=== PATIENT | male | born 1945 | race Caucasian/White ===

== ENCOUNTER → 2018-03-03 | Day surgery (SDC) | payer MEDICARE ==
[2018-03-02 13:03] VITALS: BMI 23.8
[~2018-03-03] MED LIST: PROPOFOL 20 ML ONE; PROPOFOL 200 MG/20 ML VIAL ONE
--- NOTE | 2018-03-03 19:48 | ECHO ---
This is a 72-year-old gentleman with aortic regurgitation. The patient taken to the PACU. The patien t was sedated by anesthesiology. A transesophageal probe was placed distally in the esophagus and sto mach. Echocardiographic images were obtained and the transesophageal probe was removed. FINDINGS 1. Normal left ventricular systolic function. 2. Normal left atrial size. 3. Normal aortic and mitral valves. 4. Mild to moderate aortic regurgitation. 5. Mild to moderate mitral regurgitation. 6. Mild tricuspid regurgitation. 7. Atherosclerotic debris in the descending aorta. IMPRESSION: Mild to moderate aortic regurgitation. CC: Caitlin Clemente M.D.
== END ==
LOC: CCL 06:49
PROVIDERS: ATTEND Internal Medicine Cardiovascular Disease
DX: I35.1 Nonrheumatic aortic (valve) insufficiency (principal); I34.0 Nonrheumatic mitral (valve) insufficiency; I36.1 Nonrheumatic tricuspid (valve) insufficiency; E78.2 Mixed hyperlipidemia; I10 Essential (primary) hypertension; I25.10 Atherosclerotic heart disease of native coronary artery without angina pectoris; F17.290 Nicotine dependence, other tobacco product, uncomplicated; Z79.82 Long term (current) use of aspirin; Z79.899 Other long term (current) drug therapy
CPT/HCPCS: 93312; J2704

== ENCOUNTER 2018-03-06 05:57 | Inpatient (IN) | payer MEDICARE ==
[2018-03-06] MEDS ORDERED: Albumin 5% 500 ML ONE (06:29)
[2018-03-06] MEDS ORDERED: Vecuronium 10 MG VIAL ONE ×3 (06:32→13:58)
[2018-03-06] MEDS ORDERED: Fentanyl 100 MCG/2 ML VIAL ONE (06:32)
[2018-03-06] MEDS ORDERED: Dexmedetomidine 200 MCG/2 ML VIAL ONE (06:32)
[2018-03-06] MEDS ORDERED: Midazolam HCl 5 mg/5 ml Vial ONE (06:33)
[2018-03-06] MEDS ORDERED: CEFAZOLIN/Water 2 GM/20 ML SYRINGE ONE (06:38)
[2018-03-06] MEDS ORDERED: Heparin 10,000 UNITS/1 ML VIAL 30,000 UNITS in Sodium Chloride 0.9% 1,000 ML FS SCH (06:45)
[2018-03-06 06:49] LABS: #Basophils 0.1 thou/uL (0.0-0.2); #Eosinphils 0.3 thou/uL (0.0-0.7); #Lymphocytes 1.8 thou/uL (1.20-3.40); #Monocytes 0.6 thou/uL (0.11-0.59); %Basophils 0.7 % (0.0-1.0); %Eosinophils 3.8 % (0.0-10.0); %Lymphocytes 22.6 % (21.0-51.0); %Monocytes 8.1 % (0.0-10.0); %Neutrophils 64.7 % (42.0-75.0); Hemoglobin 17.4 g/dL (14.0-18.0); Mean Corpuscular HGB CONC 34.8 g/dL (32.0-36.0); Mean Corpuscular Hemoglobin 31.1 pg (27.0-31.0); Mean Corpuscular Volume 89.6 fL (78.0-98.0); Mean Platelet Volume 5.7 fL (7.4-10.4); Platelet Count 227 thou/uL (130-400); RBC Distribution Width 12.9 % (11.5-14.5); Red Blood Cell (RBC) Count 5.58 mill/uL (4.70-6.10); White Blood Cell (WBC) Count 7.7 thou/uL (4.8-10.8)
[2018-03-06] MEDS ORDERED: Sodium Chloride 0.9% 20 ML ONE (07:08)
[2018-03-06 07:11] LABS: Anion Gap 16 mmol/L (10-20); BUN (Urea Nitrogen) 23 mg/dL (8.4-25.7); Calc. Creatinine Clearance 71 mL/min (70-130); Calcium 10.2 mg/dL (7.8-10.44); Carbon Dioxide 26 mmol/L (23-31); Chloride 108 mmol/L (98-107); Estimated GFR-MDRD 75; Glucose 108 mg/dL (80-115); Potassium 5.1 mmol/L (3.5-5.1); Sodium 145 mmol/L (136-145)
[2018-03-06] MEDS ORDERED: Mag-Al 1200 mg/1200 mg/30 ML UDCUP PO PRN (11:45)
[2018-03-06] MEDS ORDERED: Acetaminophen 325 MG TAB PO PRN (11:45)
[2018-03-06] MEDS ORDERED: hydrALAZINE 20 MG/ML VIAL SLOW IVP PRN (11:45)
[2018-03-06] MEDS ORDERED: Potassium Chloride 20 MEQ/100 ML PREMIX BAG IVPB PRN (11:45)
[2018-03-06] MEDS ORDERED: DOPamine 400 MG/D5W 250 ML 250 ML IVPB PRN (11:45)
[2018-03-06] MEDS ORDERED: Guaifenesin DM 100-10/5 ML UDCUP PO PRN (11:45)
[2018-03-06] MEDS ORDERED: Ondansetron HCl/PF 4 MG/2 ML Vial IVP PRN (11:45)
[2018-03-06] MEDS ORDERED: Post-Op Insulin Drip Protocol IVPB ONE (11:45)
[2018-03-06] MEDS ORDERED: Norepinephrine 8 MG/0.9% NS 250 ML IVPB PRN (11:45)
[2018-03-06] MEDS ORDERED: Promethazine HCl 25 MG/ML VIAL IM PRN (11:45)
[2018-03-06] MEDS ORDERED: niCARdipine HCl 25 MG in Sodium Chloride 0.9% 250 ML 240 ML IVPB PRN (11:45)
[2018-03-06] MEDS ORDERED: Fentanyl 100 MCG/2 ML VIAL SLOW IVP PRN ×2 (11:45)
[2018-03-06] MEDS ORDERED: Bisacodyl 5 MG TAB PO PRN (11:45)
[2018-03-06] MEDS ORDERED: Hetastarch 6% 500 ML 500 ML IVPB PRN (11:45)
[2018-03-06] MEDS ORDERED: Bisacodyl 10 MG SUPP PR PRN (11:45)
[2018-03-06] MEDS ORDERED: Nitroglycerin 50 MG/250 ML BOT 250 ML IVPB PRN (11:45)
[2018-03-06 12:05] LABS: CO2 Tension 48.7 mmHg (35.0-45.0); O2 Tension (PaO2) 124.8 mmHg (> 70.0); pH, Arterial 7.29 (7.35-7.45)
[2018-03-06 12:06] LABS: ALV-art Gradient 170.825 (0-20); Base Excess (BEa) -3.9 mEq/L (-2.0 to +3.0); Calcium, Ionized 1.1 mmol/L (1.12-1.30); Hemoglobin (Hb) 15.1 g/dL (14.0-18.0); Puncture Site LINE
[2018-03-06] MEDS ORDERED: Dextrose 50% Abboject 50 ML SYRINGE SLOW IVP PRN (12:06)
[2018-03-06] MEDS ORDERED: Dextrose 5% in Water 1,000 ML IV PRN (12:06)
[2018-03-06] MEDS ORDERED: Insulin Regular 300 UNITS/3 ML VIAL SC PRN (12:06)
[2018-03-06 12:13] LABS: #Eosinphils 0.1 thou/uL (0.0-0.7); #Lymphocytes 1.1 thou/uL (1.20-3.40); #Monocytes 0.6 thou/uL (0.11-0.59); #Neutrophils 10.3 thou/uL (1.40-6.50); %Basophils 0.2 % (0.0-1.0); %Eosinophils 1.1 % (0.0-10.0); %Monocytes 4.9 % (0.0-10.0); %Neutrophils 84.8 % (42.0-75.0); Hemoglobin 14.8 g/dL (14.0-18.0); Mean Corpuscular HGB CONC 34.7 g/dL (32.0-36.0); Mean Corpuscular Hemoglobin 31.2 pg (27.0-31.0); Mean Corpuscular Volume 89.7 fL (78.0-98.0); Mean Platelet Volume 5.5 fL (7.4-10.4); Platelet Count 149 thou/uL (130-400); Red Blood Cell (RBC) Count 4.75 mill/uL (4.70-6.10); White Blood Cell (WBC) Count 12.2 thou/uL (4.8-10.8)
[2018-03-06] MEDS: Sodium Chloride 0.9% 1,000 ML IV SCH ×2 (12:18→21:47)
[2018-03-06 12:19] LABS: INR-International Normal Ratio 1.2; Prothrombin Time 15.6 SEC (12.0-14.7)
[2018-03-06 12:20] LABS: PTT 38.9 SEC (22.9-36.1)
[2018-03-06] MEDS: Ketorolac Tromethamine 30 MG/ML VIAL IVP SCH ×3 (12:20→23:06)
[2018-03-06 12:36] LABS: Anion Gap 9 mmol/L (10-20); BUN (Urea Nitrogen) 17 mg/dL (8.4-25.7); Calc. Creatinine Clearance 91 mL/min (70-130); Calcium 7.6 mg/dL (7.8-10.44); Carbon Dioxide 23 mmol/L (23-31); Chloride 112 mmol/L (98-107); Estimated GFR-MDRD Greater than 90; Glucose 159 mg/dL (80-115); Potassium 4.4 mmol/L (3.5-5.1); Sodium 140 mmol/L (136-145)
[2018-03-06] MEDS: CEFAZOLIN/Water 2 GM/20 ML SYRINGE SLOW IVP SCH ×2 (13:06→21:46)
--- NOTE | 2018-03-06 13:09 | OP ---
PREOPERATIVE DIAGNOSIS: Coronary artery disease. PROCEDURES: Coronary bypass graft x4, left internal mammary artery, good quality to a 1.5 mm LAD hollis t had plaque visible and palpable posterior and distally to the suture line. Saphenous vein graft, g ood quality, perhaps slightly on the large side to 2 mm OM that was intramyocardial with plaque in th e intramyocardial portion that was palpable and for this reason the anastomosis was done just proxima l to this. Saphenous vein to a 1.5-2 mm ramus, saphenous vein to a 1.5 mm distal right coronary humberto ry. SURGEON: Rodger Carlson M.D. SIZE TESTER: Dr. Bardales. TRANSFUSION: None. PROCEDURE IN DETAIL: After adequate anesthesia had been obtained, right subclavian triple lumen CVP was placed and ultrasound was done to visualize the left greater saphenous vein. Following this, the patient was prepped and draped and endovascular vein harvest of the left greater saphenous vein was performed by Dr. Bardales while I performed a median sternotomy. Right pleura was widely entered with t he sternal saw and then was closed at the end of the case. Left internal mammary artery was harveste d, divided distally after heparinization passed posterior to the thymus gland through an incision in the pericardium. Following this, the pericardium was opened. Aorta was palpated and it had a firm a quincy over the anterior aspect and for this reason, a cannulation site above that was chosen. After pl acing pursestring sutures, incision was made and soft plaque was visible and it was elected not to pl ana a cannula through this site. Another site was then chosen on the right side of the aorta and a p ursestring suture was placed. Aorta was quite thick here and an 8 for aortic arch cannula was advanc ed through this and secured. Right atrium was cannulated taking care to avoid the right atrial pacin g lead. Following this, cardiopulmonary bypass was instituted. The patient had a rather large heart , hooked up under the left side of the chest. Vessels were inspected for grafting. Aorta was cross- clamped with a padded cross-clamp and a liter of cold blood cardioplegia given through the aortic alex t. Following this, four distal anastomoses were completed. Two punch holes were made in the ascendi ng aorta in the soft part and there was no visible plaque although the aorta was thickened. Two prox imal anastomoses were then performed from the right coronary graft and to the OM graft. Following th is, the cross-clamp was removed, venting air from the aortic root. The ramus vein graft was anastomo sed to the side of the OM graft about 1.5 cm from the aortic root. Both grafts on the root marked wi th rings. The patient weaned from cardiopulmonary bypass. Cannulas were removed, and protamine give n systemically. Aortic cannulation sites were both sewn over with 4-0 Prolene suture. Mediastinal a nd bilateral pleural drains were placed following which the sternum was reapproximated with vancomyci n paste on the sternal edges, platelet rich blood, and platelet-poor plasma. Three zip ties were use d in addition to #7 wire. The patient is to be taken to the ICU in guarded condition.
[2018-03-06 13:33] VITALS: BMI 25.2
[2018-03-06] MEDS ORDERED: Papaverine 60 MG/2 ML VIAL ONE (13:58)
[2018-03-06] MEDS ORDERED: Lidocaine 2% PF 100 mg/5 ml Syringe ONE (13:58)
[2018-03-06] MEDS ORDERED: PHENYLEPHRINE-NS 100 MCG/ML 10 ML SYRINGE ONE (13:58)
[2018-03-06] MEDS ORDERED: Heparin 30,000 units/30 ml VIAL ONE (13:58)
[2018-03-06] MEDS ORDERED: Nitroglycerin 50 MG/250 ML BOT ONE (13:58)
[2018-03-06] MEDS ORDERED: Mannitol 12.5 GM/50 ML ONE (13:58)
[2018-03-06] MEDS ORDERED: Sodium Bicarb 50 MEQ/50 ML VIAL ONE (13:58)
[2018-03-06] MEDS ORDERED: PROPOFOL 200 MG/20 ML VIAL ONE (13:58)
[2018-03-06] MEDS ORDERED: Protamine Sulfate 250 MG/25 ML VIAL ONE (13:58)
[2018-03-06] MEDS ORDERED: Aminocaproic Acid 5 GM/20 ML VIAL ONE (13:58)
[2018-03-06] MEDS ORDERED: Potassium Chlo 10 mEq/5 ml Syr ONE (13:58)
[2018-03-06] MEDS ORDERED: Cardioplegic Soln 1,000 ML BAG ONE (13:58)
[2018-03-06] MEDS ORDERED: Magnesium 5 GM/10 ML VIAL ONE (13:58)
[2018-03-06] MEDS ORDERED: Thrombin 5000 UNITS/5 ML VIAL ONE (13:58)
[2018-03-06] MEDS ORDERED: Calcium Chloride 1 GM/10 ML Abboject SYRINGE ONE (13:58)
[2018-03-06] MEDS ORDERED: Heparin 5,000 UNITS/ML VIAL ONE (13:58)
[2018-03-06 15:07] LABS: Actual Bicarbonate (HCO3a) 21.2 mEq/L (22-28); Base Excess (BEa) -4.9 mEq/L (-2.0 to +3.0); CO2 Tension 43.1 mmHg (35.0-45.0); Hemoglobin (Hb) 13.8 g/dL (14.0-18.0); pH, Arterial 7.31 (7.35-7.45)
[2018-03-06 15:08] LABS: ALV-art Gradient 96.025 (0-20); Calcium, Ionized 1.1 mmol/L (1.12-1.30); Puncture Site LINE
--- NOTE | 2018-03-06 15:24 | RAD ---
PORTABLE CHEST 1 VIEW: Date: 03/06/18 Time: 1204 hours HISTORY: Postop open heart surgery, respiratory failure. FINDINGS/IMPRESSION: There are changes of median sternotomy. Left-sided pacing device is present. There is an endotracheal tube with tip about 1.5 cm above the level of the cooper. Nasogastric tube can be traced into the st omach. There is a right subclavian central line traversing superiorly into the right internal jugular vein in the neck with tip excluded from the film. Mediastinal drain and left-sided chest tube are pr esent. The heart size is enlarged. No lobar consolidation, pneumothoraces, or large effusions are see n. POS: [facility]
[2018-03-06 17:58] LABS: Hemoglobin 12.8 g/dL (14.0-18.0)
[2018-03-06 18:09] LABS: Potassium 4.1 mmol/L (3.5-5.1)
[2018-03-06] MEDS: Famotidine/PF 20 mg/2ml Vial SLOW IVP SCH (20:27)
[2018-03-06] MEDS ORDERED: Simvastatin 20 MG TAB PO SCH (21:00)
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
[2018-03-07 04:01] LABS: #Lymphocytes 0.8 thou/uL (1.20-3.40); #Monocytes 0.6 thou/uL (0.11-0.59); #Neutrophils 8.9 thou/uL (1.40-6.50); %Basophils 0.1 % (0.0-1.0); %Eosinophils 0.2 % (0.0-10.0); %Lymphocytes 7.7 % (21.0-51.0); %Monocytes 5.8 % (0.0-10.0); %Neutrophils 86.3 % (42.0-75.0); Hemoglobin 12.3 g/dL (14.0-18.0); Mean Corpuscular HGB CONC 34.7 g/dL (32.0-36.0); Mean Corpuscular Hemoglobin 31.5 pg (27.0-31.0); Mean Corpuscular Volume 90.8 fL (78.0-98.0); Mean Platelet Volume 5.9 fL (7.4-10.4); Platelet Count 150 thou/uL (130-400); Red Blood Cell (RBC) Count 3.91 mill/uL (4.70-6.10); White Blood Cell (WBC) Count 10.3 thou/uL (4.8-10.8)
[2018-03-07] MEDS: Sodium Chloride 0.9% 1,000 ML IV SCH ×3 (04:13→22:32)
[2018-03-07 04:20] LABS: Anion Gap 11 mmol/L (10-20); BUN (Urea Nitrogen) 19 mg/dL (8.4-25.7); Calc. Creatinine Clearance 108 mL/min (70-130); Calcium 7.6 mg/dL (7.8-10.44); Carbon Dioxide 19 mmol/L (23-31); Chloride 117 mmol/L (98-107); Estimated GFR-MDRD Greater than 90; Glucose 143 mg/dL (80-115); Sodium 143 mmol/L (136-145)
[2018-03-07] MEDS: HYDROcodone/Acetaminophen 5/325 mg Tablet PO PRN ×3 (04:42→22:47)
[2018-03-07] MEDS: CEFAZOLIN/Water 2 GM/20 ML SYRINGE SLOW IVP SCH (06:04)
[2018-03-07] MEDS: Ketorolac Tromethamine 30 MG/ML VIAL IVP SCH ×3 (06:04→17:33)
--- NOTE | 2018-03-07 09:11 | RAD ---
RADIOGRAPH CHEST 1 VIEW: Date: 03/07/18 Time: 0438 hours HISTORY: 72-year-old male with cough. COMPARISON: 07/18/16. FINDINGS: The left subclavian dual lead pacemaker remains. The cardiac size is significantly larger on the curr ent study, now enlarged. The lungs are hypoinflated. New finding of elevation of the right hemidiaphr agm. New finding of nonspecific mild pulmonary densities at the right base and centrally. New sternot mary wires. New right subclavian central line that ascends the right side of the neck, presumably asce nding the internal jugular vein, with distal tip outside of the field of view. No pulmonary edema. Th ere is mild pulmonary vascular engorgement. No pneumothorax. No effacement of lateral costophrenic an gles. Bilateral basilar chest tubes. Midline chest tube. IMPRESSION: 1. Status post coronary artery bypass graft surgery, and life support lines as mentioned above. 2. No pneumothorax. 3. Right-sided central vascular catheter ascends the right side of the neck, with distal tip outside of the field of view. 4. Cardiomegaly and mild pulmonary venous congestion, without pulmonary edema. GLENN [] POS: [facility]
[2018-03-07] MEDS ORDERED: Mineral Oil ENEMA PR PRN (09:32)
[2018-03-07] MEDS ORDERED: Nitroglycerin 0.4 MG TAB (25 Tab Bottle) SL PRN (09:32)
[2018-03-07] MEDS ORDERED: Bisacodyl 5 MG TAB PO PRN (09:32)
[2018-03-07] MEDS ORDERED: Bisacodyl 10 MG SUPP PR PRN (09:32)
[2018-03-07] MEDS ORDERED: Zolpidem Tartrate 5 MG TAB PO PRN (09:32)
[2018-03-07] MEDS ORDERED: diphenhydrAMINE 25 MG CAP PO PRN (09:32)
[2018-03-07] MEDS ORDERED: Artificial Tears 18 DROP/0.9 ML EA EYE PRN (09:32)
[2018-03-07] MEDS ORDERED: Guaifenesin DM 100-10/5 ML UDCUP PO PRN (09:32)
[2018-03-07] MEDS ORDERED: Mag-Al 1200 mg/1200 mg/30 ML UDCUP PO PRN (09:32)
[2018-03-07] MEDS ORDERED: Aspirin 325 mg Enteric Coated Tablet PO SCH ×2 (09:32→10:00)
[2018-03-07] MEDS: Aspirin 325 MG TAB PO SCH (10:03)
[2018-03-07] MEDS: Famotidine/PF 20 mg/2ml Vial SLOW IVP SCH ×2 (10:04→21:37)
[2018-03-07] MEDS: Rosuvastatin 20 MG TAB PO SCH (21:37)
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
[2018-03-08] MEDS: Ketorolac Tromethamine 30 MG/ML VIAL IVP SCH ×4 (01:19→17:32)
[2018-03-08] MEDS: HYDROcodone/Acetaminophen 5/325 mg Tablet PO PRN ×4 (04:56→20:49)
[2018-03-08 06:17] LABS: Anion Gap 12 mmol/L (10-20); BUN (Urea Nitrogen) 25 mg/dL (8.4-25.7); Calc. Creatinine Clearance 93 mL/min (70-130); Calcium 8.1 mg/dL (7.8-10.44); Carbon Dioxide 19 mmol/L (23-31); Chloride 116 mmol/L (98-107); Estimated GFR-MDRD Greater than 90; Glucose 119 mg/dL (80-115); Potassium 4.4 mmol/L (3.5-5.1); Sodium 143 mmol/L (136-145)
[2018-03-08 06:44] LABS: Band 10 % (5-11); Eosinophils 1 % (0-10); Hemoglobin 12.1 g/dL (14.0-18.0); Lymphocytes 14 % (21-51); MDiff Complete? YES; Mean Corpuscular HGB CONC 33.4 g/dL (32.0-36.0); Mean Corpuscular Hemoglobin 31.1 pg (27.0-31.0); Mean Corpuscular Volume 93.1 fL (78.0-98.0); Mean Platelet Volume 6.8 fL (7.4-10.4); Monocytes 6 % (0-10); Neutrophil 69 % (42-75); Platelet Count 148 thou/uL (130-400); RBC Distribution Width 13.4 % (11.5-14.5); Red Blood Cell (RBC) Count 3.89 mill/uL (4.70-6.10); White Blood Cell (WBC) Count 11.2 thou/uL (4.8-10.8)
[2018-03-08] MEDS: Sodium Chloride 0.9% 1,000 ML IV SCH (08:56)
[2018-03-08] MEDS: Famotidine/PF 20 mg/2ml Vial SLOW IVP SCH ×2 (08:57→20:06)
[2018-03-08] MEDS: Aspirin 325 MG TAB PO SCH (09:00)
[2018-03-08] MEDS ORDERED: Aspirin 325 mg Enteric Coated Tablet PO SCH (09:00)
[2018-03-08] MEDS ORDERED: Metolazone 5 MG TAB PO SCH (11:15)
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
[2018-03-08] MEDS ORDERED: Furosemide 40 MG/4 ML VIAL SLOW IVP SCH (14:00)
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
[2018-03-08] MEDS: Rosuvastatin 20 MG TAB PO SCH (20:07)
--- NOTE | 2018-03-08 23:13 | EKG ---
Test Reason : PREOP Blood Pressure : / mmHG Vent. Rate : 062 BPM Atrial Rate : 062 BPM P-R Int : 140 ms QRS Dur : 160 ms QT Int : 464 ms P-R-T Axes : 042 -84 014 degrees QTc Int : 470 ms Electronic atrial pacemaker Left axis deviation Right bundle branch block Abnormal ECG When compared with ECG of 17-AUG-2015 15:06, No significant change was found Confirmed by Clyde SEGURA ([id number]) on 03/08/2018 11:13:44 PM Referred By: FLOWER Confirmed By:Clyde SEGURA
--- NOTE | 2018-03-08 23:17 | EKG ---
Test Reason : POST CABG Blood Pressure : / mmHG Vent. Rate : 062 BPM Atrial Rate : 062 BPM P-R Int : 216 ms QRS Dur : 160 ms QT Int : 496 ms P-R-T Axes : 063 -81 -42 degrees QTc Int : 503 ms Sinus rhythm with 1st degree A-V block Left axis deviation Right bundle branch block T wave abnormality, consider inferolateral ischemia Abnormal ECG When compared with ECG of 06-MAR-2018 06:46, (Unconfirmed) Sinus rhythm has replaced Electronic atrial pacemaker T wave inversion now evident in Inferior leads T wave inversion now evident in Lateral leads Confirmed by Clyde SEGURA ([id number]) on 03/08/2018 11:16:39 PM Referred By: FLOWER Confirmed By:Clyde SEGURA
[2018-03-09] MEDS: Ketorolac Tromethamine 30 MG/ML VIAL IVP SCH ×2 (00:24→05:18)
[2018-03-09 05:05] LABS: #Eosinphils 0.1 thou/uL (0.0-0.7); #Lymphocytes 1.1 thou/uL (1.20-3.40); #Monocytes 0.5 thou/uL (0.11-0.59); #Neutrophils 8.4 thou/uL (1.40-6.50); %Basophils 0.2 % (0.0-1.0); %Lymphocytes 11.1 % (21.0-51.0); %Neutrophils 82.7 % (42.0-75.0); Hemoglobin 12.1 g/dL (14.0-18.0); Mean Corpuscular HGB CONC 34.5 g/dL (32.0-36.0); Mean Corpuscular Hemoglobin 31.4 pg (27.0-31.0); Mean Corpuscular Volume 91.1 fL (78.0-98.0); Mean Platelet Volume 6.1 fL (7.4-10.4); Platelet Count 181 thou/uL (130-400); RBC Distribution Width 13.1 % (11.5-14.5); Red Blood Cell (RBC) Count 3.85 mill/uL (4.70-6.10); White Blood Cell (WBC) Count 10.2 thou/uL (4.8-10.8)
[2018-03-09 05:27] LABS: Anion Gap 13 mmol/L (10-20); BUN (Urea Nitrogen) 27 mg/dL (8.4-25.7); Calc. Creatinine Clearance 89 mL/min (70-130); Calcium 8.5 mg/dL (7.8-10.44); Carbon Dioxide 22 mmol/L (23-31); Chloride 111 mmol/L (98-107); Estimated GFR-MDRD Greater than 90; Glucose 114 mg/dL (80-115); Potassium 3.7 mmol/L (3.5-5.1); Sodium 142 mmol/L (136-145)
[2018-03-09] MEDS ORDERED: Potassium Chloride 20 MEQ TAB PO SCH (07:00)
[2018-03-09] MEDS ORDERED: Furosemide 40 MG TAB PO SCH (07:30)
[2018-03-09] MEDS: Aspirin 325 MG TAB PO SCH (10:39)
[2018-03-09] MEDS ORDERED: guaiFENesin ER 600 MG TAB PO SCH (13:00)
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
[2018-03-09] MEDS: HYDROcodone/Acetaminophen 5/325 mg Tablet PO PRN (16:18)
[2018-03-09] MEDS: Rosuvastatin 20 MG TAB PO SCH (20:46)
[2018-03-09] MEDS: guaiFENesin ER 600 MG TAB PO SCH (20:46)
[2018-03-10] MEDS: Aspirin 325 MG TAB PO SCH (09:35)
[2018-03-10] MEDS: guaiFENesin ER 600 MG TAB PO SCH ×2 (09:35→20:18)
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
[2018-03-10] MEDS: Rosuvastatin 20 MG TAB PO SCH (20:18)
--- NOTE | 2018-03-11 08:10 | PRG ---
DATE OF SERVICE: 03/11/2018 SUBJECTIVE: Mr. Alfaro is doing well this morning. He is ready to go home. OBJECTIVE: VITAL SIGNS: Sats are 92% on room air, temperature 98, pulse 77, respiration 20, blood pressure 120/ 68. CHEST: Chest reveals decreased breath sounds, no wheezing. CARDIAC: Normal S1, S2. No gallops. ABDOMEN: Soft, no masses. IMPRESSION: Status post coronary artery bypass graft, chronic obstructive pulmonary disease. PLAN: He can be discharged home. I have asked him to see me in the office in several weeks.
[2018-03-11] MEDS: Aspirin 325 MG TAB PO SCH (08:40)
[2018-03-11] MEDS: guaiFENesin ER 600 MG TAB PO SCH (08:40)
[2018-03-11 11:18] VITALS: BP 90/54; TEMP 97.7
--- NOTE | 2018-03-11 12:42 | DIS ---
HOSPITAL COURSE: This is a 72-year-old gentleman admitted for elective coronary bypass grafting. He had undergone cardiac catheterization at the [facility] about 10 days prior. His surgery was postponed slightly to allow for some smoking cessation as well as a GERMAN demonstrating mil d central aortic insufficiency. He underwent coronary bypass graft x4, TOM to LAD, saphenous vein g raft to the right coronary artery, the OM and the ramus. He had a fairly diseased ascending aorta wi th calcified plaque present. He had calcified plaque in the LAD, ramus and right coronary artery dis samira to anastomosis. His postoperative course was relatively unremarkable. He did have some pulmonar y wheezing and was followed by Pulmonary Service in regards to this. He does have a nebulizer at [facility] and has been instructed to continue this as well as no further smoking. He will resume his home me dicines except for his amlodipine, which will stay on hold at this time. His vital signs have been s table. His incisions are healing nicely. He has been sleeping on his side in the hospital.
== END 2018-03-11 13:11 | disposition home or self-care (01) | DRG 236 ==
LOC: SURG A 05:57 → CCU 09:33 → 2NO 03-07 11:50
PROVIDERS: ADMIT Thoracic Surgery (Cardiothoracic Vascular Surgery); ATTEND Thoracic Surgery (Cardiothoracic Vascular Surgery)
PROC: 02100Z9 Bypass Coronary Artery, One Artery from Left Internal Mammary, Open Approach (ICD-10-PCS; principal; 2018-03-06)
PROC: 021209W Bypass Coronary Artery, Three Arteries from Aorta with Autologous Venous Tissue, Open Approach (ICD-10-PCS; 2018-03-06)
PROC: 06BQ4ZZ Excision of Left Saphenous Vein, Percutaneous Endoscopic Approach (ICD-10-PCS; 2018-03-06)
PROC: 5A1221Z Performance of Cardiac Output, Continuous (ICD-10-PCS; 2018-03-06)
DX: I25.10 Atherosclerotic heart disease of native coronary artery without angina pectoris (principal); E78.2 Mixed hyperlipidemia; I10 Essential (primary) hypertension; I35.9 Nonrheumatic aortic valve disorder, unspecified; F17.210 Nicotine dependence, cigarettes, uncomplicated; J98.01 Acute bronchospasm; F32.9 Major depressive disorder, single episode, unspecified; J44.9 Chronic obstructive pulmonary disease, unspecified; Z79.82 Long term (current) use of aspirin
CPT/HCPCS: 36415; 36416; 36430; 71045; 80048; 82805; 85025; 85610; 85730; 86850; 86900; 86901; 93005; 93010; 93312; 93798; 94002; 94150; 94640; A4216; J1265; J1642; J1644; J1815; J1885; J1940; J2001; J2150; J2250; J2270; J2405; J2440; J2704; J2720; J3010; J3370; J3475; J3480; J7050; J7620; P9045; S0017; S0028

== ENCOUNTER 2018-03-31 12:02 | Inpatient (IN) | payer MEDICARE ==
[2018-03-31] MEDS ORDERED: Aspirin 325 MG TAB ONE (13:29)
[2018-03-31 13:42] LABS: #Eosinphils 0.1 thou/uL (0.0-0.7); #Lymphocytes 1.5 thou/uL (1.20-3.40); #Monocytes 0.6 thou/uL (0.11-0.59); #Neutrophils 10.8 thou/uL (1.40-6.50); %Basophils 0.2 % (0.0-1.0); %Eosinophils 0.9 % (0.0-10.0); %Lymphocytes 11.8 % (21.0-51.0); %Monocytes 4.8 % (0.0-10.0); %Neutrophils 82.3 % (42.0-75.0); Hemoglobin 16.9 g/dL (14.0-18.0); Mean Corpuscular HGB CONC 34.3 g/dL (32.0-36.0); Mean Corpuscular Hemoglobin 30.9 pg (27.0-31.0); Mean Corpuscular Volume 90.2 fL (78.0-98.0); Mean Platelet Volume 5.7 fL (7.4-10.4); Platelet Count 228 thou/uL (130-400); RBC Distribution Width 14.6 % (11.5-14.5); Red Blood Cell (RBC) Count 5.45 mill/uL (4.70-6.10); White Blood Cell (WBC) Count 13.1 thou/uL (4.8-10.8)
--- NOTE | 2018-03-31 13:50 | RAD ---
FRONTAL VIEW CHEST: Comparison: 03-08-18 Indication: Chest pain with tightness. FINDINGS: There is enlargement of the cardiac mediastinal silhouette. Mild prominence of the central pulmonary vascular is seen. There is evidence of prior sternotomy and a left sided cardiac pacing device remain s. No lobar consolidation or significant effusion. No discrete pneumothorax. There are leads overlyin g the chest limiting detail. IMPRESSION: 1. Prominent cardiac silhouette. 2. No lobar consolidation. POS: [facility]
[2018-03-31 14:06] LABS: ALT (SGPT) 26 U/L (8-55); AST (SGOT) 16 U/L (5-34); Albumin 3.9 g/dL (3.4-4.8); Alkaline Phosphatase 140 U/L (40-150); Anion Gap 14 mmol/L (10-20); BUN (Urea Nitrogen) 29 mg/dL (8.4-25.7); Bilirubin, Total 0.4 mg/dL (0.2-1.2); CK (CPK) 18 U/L (30-200); Calc. Creatinine Clearance 0 mL/min (70-130); Calcium 9.3 mg/dL (7.8-10.44); Carbon Dioxide 26 mmol/L (23-31); Chloride 103 mmol/L (98-107); Estimated GFR-MDRD 67; Globulin 2.9 g/dL (2.4-3.5); Glucose 113 mg/dL (83-110); Potassium 4.7 mmol/L (3.5-5.1); Protein, Total 6.8 g/dL (5.8-8.1); Sodium 138 mmol/L (136-145)
[2018-03-31 14:11] LABS: Troponin I 0.068 ng/mL (< 0.028)
[2018-03-31] MEDS ORDERED: Enoxaparin Sodium 80 MG/0.8 ML SYRINGE ONE (17:34)
[2018-03-31] MEDS ORDERED: Clopidogrel Bisulfate 300 MG TAB PO SCH (18:00)
[2018-03-31 19:29] LABS: CKMB 6.8 ng/mL (0-6.6); Troponin I 0.922 ng/mL (< 0.028)
[2018-03-31] MEDS ORDERED: Ondansetron HCl/PF 4 MG/2 ML Vial IVP PRN (19:40)
[2018-03-31] MEDS ORDERED: Ondansetron ODT 4 MG TAB SL PRN (19:40)
[2018-03-31] MEDS ORDERED: Acetaminophen 325 MG TAB PO PRN (19:40)
[2018-03-31 19:41] VITALS: BMI 22.7
[2018-03-31] MEDS ORDERED: Communication Order-Pharmacy FS SCH (19:45)
[2018-03-31] MEDS ORDERED: Rosuvastatin 20 MG TAB PO SCH (21:00)
[2018-03-31] MEDS: Rosuvastatin 20 MG TAB PO SCH (21:04)
[2018-04-01] MEDS: Ubidecarenone 50 MG CAP PO SCH (06:21)
[2018-04-01] MEDS: Aspirin 81 mg Enteric Coated Tablet PO SCH (06:22)
[2018-04-01 07:10] LABS: #Eosinphils 0.3 thou/uL (0.0-0.7); #Lymphocytes 2.1 thou/uL (1.20-3.40); #Monocytes 0.7 thou/uL (0.11-0.59); #Neutrophils 6.8 thou/uL (1.40-6.50); %Basophils 0.5 % (0.0-1.0); %Eosinophils 2.7 % (0.0-10.0); %Lymphocytes 20.7 % (21.0-51.0); %Monocytes 7.2 % (0.0-10.0); Hemoglobin 15.8 g/dL (14.0-18.0); Mean Corpuscular HGB CONC 33.6 g/dL (32.0-36.0); Mean Corpuscular Hemoglobin 30.4 pg (27.0-31.0); Mean Corpuscular Volume 90.6 fL (78.0-98.0); Mean Platelet Volume 6.1 fL (7.4-10.4); Platelet Count 191 thou/uL (130-400); RBC Distribution Width 14.6 % (11.5-14.5); White Blood Cell (WBC) Count 9.9 thou/uL (4.8-10.8)
[2018-04-01 07:20] LABS: Anion Gap 13 mmol/L (10-20); BUN (Urea Nitrogen) 24 mg/dL (8.4-25.7); Calc. Creatinine Clearance 67 mL/min (70-130); Calcium 9.2 mg/dL (7.8-10.44); Carbon Dioxide 24 mmol/L (23-31); Chloride 106 mmol/L (98-107); Estimated GFR-MDRD 76; Glucose 107 mg/dL (83-110); Potassium 4.4 mmol/L (3.5-5.1); Sodium 139 mmol/L (136-145)
[2018-04-01 08:07] LABS: Cardiac Risk 4.6 (Less than 4.5)
--- NOTE | 2018-04-01 08:29 | HP ---
TIME OF EVALUATION: 8:35 p.m. PRIMARY CARE PHYSICIAN: Dr. Clemente. CODE STATUS: FULL CODE. CHIEF COMPLAINT: Chest pain. HISTORY OF PRESENT ILLNESS: This is a 73-year-old male patient with past medical history of coronary artery disease, hyperlipidemia, high cholesterol, recent CABG done on 03/06/2018, came to the hospit al after having chest pain associated with nausea, the patient reported the pain as tightness, it was 9/10, no clear triggers, no alleviating factors. The pain was radiating to the left arm. Given rec ent surgery, the patient presented to the hospital, has been seen by Dr. Kaiser. We will monitor on t ankit, follow troponins, further treatment as per cardiology recommendations. Of note, the patient als o has history of atrial fibrillation with pacemaker. REVIEW OF SYSTEMS: Constitutional: No fever, no chills. Generalized weakness. Respiratory: No co ugh, sputum production, or shortness of breath. Cardiovascular: Chest pain. No palpitations, no sh ortness of breath. Gastrointestinal: The patient reported nausea. No vomiting, diarrhea, or abdomi nal pain. Central Nervous Systems: No dizziness, headache, or feeling lightheaded. Genitourinary: No burning on urination. Extremities: No leg swelling. All other systems were reviewed and negati ve except for the findings mentioned above. FAMILY HISTORY: Mother, diabetes. Father, CHF. PAST MEDICAL HISTORY: As mentioned in the HPI. PAST SURGICAL HISTORY: Right leg surgery, bone graft out of right leg put into jaw, pacemaker, CABG done this month on the 3rd, tracheostomy, PEG tube, appendectomy. PSYCHIATRIC HISTORY: No previous psychiatric history. SOCIAL HISTORY: No alcohol, no drugs. No smoking history. KNOWN ALLERGIES: No known drug allergies. REPORTED MEDICATIONS: None. PHYSICAL EXAMINATION: VITAL SIGNS: On presentation, blood pressure 155/86, heart rate 74, temperature 98.3, O2 saturation 95. GENERAL APPEARANCE: Patient is alert, oriented, in no any acute distress. HEENT: Eyes: Normal conjunctivae. Moist oral mucosa. Anicteric. NECK: No JVD. RESPIRATORY: Bilateral air entry. No rales, no wheezing. Symmetric expansion. CARDIOVASCULAR: Normal rate, regular rhythm. No murmurs, no gallop. No edema. ABDOMEN: Soft. Normal bowel sounds. MUSCULOSKELETAL: Baseline range of motion and strength. No tenderness. Peripheral pulses are prese nt. Capillary refill seems to be intact. SKIN: Warm and intact. No pallor, no rash. No redness. NEUROLOGIC: Baseline sensorium. No evidence of any new focal weakness. Baseline speech. Cranial n erve seems to be intact. PSYCHIATRIC: The patient is in a good mood. No anxiety. Oriented, optimal judgment. IMAGING: Chest x-ray was reviewed. The patient has prominent cardiac silhouette, no lobar consolida tion. EKG was reviewed. The patient has normal sinus rhythm with RBBB and rate of 78, WV 156, QRS 1 54, QT corrected 487. EKG was reviewed by myself. LABORATORY DATA: Reviewed. White count 13.1 with hemoglobin of 16.9, platelet count 228,000. Chemi stry: Sodium 138, potassium 4.7, chloride 103, anion gap 14, BUN 29, creatinine 1.0, GFR 67, glucose 113. CK 18. Troponin has been borderline x three, mildly increased; initially 0.068, second 0.4, t hird 0.9. ASSESSMENT AND PLAN: The patient will be placed in the hospital for following medical problems: 1. Chest pain, rule out acute coronary syndrome. The patient has recent coronary artery bypass manasa t in 03/06. The patient has been seen by Dr. Kaiser, no further recommendations. We will continue tr eatment with Lovenox, aspirin, and Plavix for now . 2. Hyperlipidemia. Reconcile home medications. No cholesterol diet is advised. 3. Uncontrolled hypertension. Systolic blood pressure 155. Reconcile home medications, give p.r.n. medications as needed for optimal control. 4. Deep venous thrombosis prophylaxis.
[2018-04-01] MEDS ORDERED: Enoxaparin Sodium 40 MG/0.4 ML SYRINGE SC SCH (09:00)
[2018-04-01] MEDS ORDERED: Enoxaparin Sodium 80 MG/0.8 ML SYRINGE SC SCH (09:00)
[2018-04-01] MEDS ORDERED: Temazepam 15 MG CAP PO PRN (11:12)
[2018-04-01] MEDS ORDERED: Sodium Chloride 0.65% Nasal 44 ML BOT EA NARE PRN (11:12)
[2018-04-01] MEDS ORDERED: Chloraseptic Spray 180 ml Bottle PO PRN (11:12)
[2018-04-01] MEDS ORDERED: Artificial Tear Sol 15 ML BOT EA EYE PRN (11:12)
[2018-04-01] MEDS ORDERED: Diabetic Tussin 200 MG/10 ML UDCUP PO PRN (11:12)
[2018-04-01] MEDS ORDERED: Acetaminophen 325 MG TAB PO PRN (11:12)
[2018-04-01] MEDS ORDERED: HYDROcodone/Acetaminophen 5/325 mg Tablet PO PRN (11:12)
[2018-04-01] MEDS ORDERED: Milk Of Magnesia 30 ML UDCUP PO PRN (11:12)
[2018-04-01] MEDS ORDERED: Ondansetron ODT 4 MG TAB PO PRN (11:12)
[2018-04-01] MEDS ORDERED: hydrALAZINE 20 MG/ML VIAL SLOW IVP PRN (11:12)
[2018-04-01] MEDS ORDERED: Senokot 8.6 MG TAB PO PRN (11:12)
[2018-04-01] MEDS ORDERED: Loperamide HCl 2 MG CAP PO PRN (11:12)
[2018-04-01] MEDS ORDERED: Mag-Al 1200 mg/1200 mg/30 ML UDCUP PO PRN (11:12)
[2018-04-01] MEDS ORDERED: Loratadine 10 MG TAB PO PRN (11:12)
[2018-04-01] MEDS ORDERED: Ondansetron HCl/PF 4 MG/2 ML Vial IVP PRN (11:12)
[2018-04-01] MEDS ORDERED: Eucerin (Mineral Oil/Petrolatum,White) 30 gm Jar TOP PRN (11:12)
[2018-04-01] MEDS ORDERED: Nitroglycerin 0.4 MG TAB (25 Tab Bottle) SL PRN ×2 (11:12→13:26)
--- NOTE | 2018-04-01 11:12 | PDOC.PN ---
- Subjective Encounter Start Date: 04/01/18 Encounter Start Time: 07:50 -: old records requested/rev Patient seen and examined. No new complaints. No overnight events - Objective Resuscitation Status: Resuscitation Status FULL:Full Resuscitation MAR Reviewed: Yes Vital Signs & Weight: Vital Signs (12 hours) Temp Pulse Resp BP BP Pulse Ox 04/01/18 07:55 97.7 F 63 16 98 04/01/18 07:54 97.7 F 63 16 128/66 98 04/01/18 04:43 97.9 F 60 16 104/58 L 95 04/01/18 00:01 64 16 111/61 96 Weight Admit Weight 149 lb 11.2 oz Weight 149 lb 11.2 oz I&O: 03/31/18 04/01/18 04/02/18 06:59 06:59 06:59 Intake Total 600 Output Total 300 Balance 300 Result Diagrams: 04/01/18 06:54 04/01/18 06:54 Radiology Reviewed by me: Yes (chest xray) EKG Reviewed by me: Yes (nsr) Phys Exam - Physical Examination Constitutional: NAD HEENT: moist MMs, sclera anicteric right eye enucleated Neck: no JVD, supple Respiratory: no wheezing, no rales, no rhonchi surgical scar is well healing Cardiovascular: RRR, no significant murmur, no rub Gastrointestinal: soft, non-tender, no distention, positive bowel sounds Musculoskeletal: no edema, pulses present Neurological: non-focal, normal sensation, moves all 4 limbs Psychiatric: normal affect, A&O x 3 Skin: no rash, normal turgor Dx/Plan (1) NSTEMI (non-ST elevated myocardial infarction) Code(s): I21.4 - NON-ST ELEVATION (NSTEMI) MYOCARDIAL INFARCTION Status: Acute (2) Anxiety and depression Code(s): F41.9 - ANXIETY DISORDER, UNSPECIFIED; F32.9 - MAJOR DEPRESSIVE DISORDER, SINGLE EPISODE, UNSPECIFIED Status: Chronic (3) CAD (coronary artery disease) Code(s): I25.10 - ATHSCL HEART DISEASE OF [place] CORONARY ARTERY W/O ANG PCTRS Status: Chronic (4) Dyslipidemia Code(s): E78.5 - HYPERLIPIDEMIA, UNSPECIFIED Status: Chronic (5) Moderate aortic regurgitation Code(s): I35.1 - NONRHEUMATIC AORTIC (VALVE) INSUFFICIENCY Status: Chronic (6) Tobacco abuse Code(s): Z72.0 - TOBACCO USE Status: Chronic - Plan cont current plan of care * change to inpt status * consult cardiology * consult cardiovascular surgeon * currently on optimum medical therapy for nstemi. aspirin, plavix, crestor, metoprolol * continue following medication * symptomatic treatment as below Review of Systems - Review of Systems Eyes: negative: Pain, Vision Change, Conjunctivae Inflammation, Eyelid Inflammation, Redness, Other ENT: negative: Ear Pain, Ear Discharge, Nose Pain, Nose Discharge, Nose Congestion, Mouth Pain, Mouth Swelling, Throat Pain, Throat Swelling, Other Respiratory: negative: Cough, Dry, Shortness of Breath, Hemoptysis, SOB with Excertion, Pleuritic Pain, Sputum, Wheezing Cardiovascular: negative: chest pain, palpitations, orthopnea, paroxysmal nocturnal dyspnea, edema, light headedness, other Gastrointestinal: negative: Nausea, Vomiting, Abdominal Pain, Diarrhea, Constipation, Melena, Hematochezia, Other Genitourinary: negative: Dysuria, Frequency, Incontinence, Hematuria, Retention , Other Musculoskeletal: negative: Neck Pain, Shoulder Pain, Arm Pain, Back Pain, Hand Pain, Leg Pain, Foot Pain, Other Skin: negative: Rash, Lesions, Gabriel, Bruising, Other - Medications/Allergies Allergies/Adverse Reactions: Allergies Allergy/AdvReac Type Severity Reaction Status Date / Time No Known Allergies Allergy Verified 03/05/18 15:11 Medications: Current Medications Aspirin (Ecotrin) 81 mg PO DAILY [facility] Last Admin: 04/01/18 06:22 Dose: 81 mg Cholecalciferol (Vitamin D3) 1,000 units PO DAILY [facility] Last Admin: 04/01/18 06:22 Dose: 1,000 units Coenzyme Q10 (Coenzyme Q10) 100 mg PO DAILY [facility] Last Admin: 04/01/18 06:21 Dose: 100 mg Rosuvastatin Calcium (Crestor) 20 mg PO HS [facility] Last Admin: 03/31/18 21:04 Dose: Not Given Sertraline HCl (Zoloft) 50 mg PO DAILY [facility] Last Admin: 04/01/18 06:21 Dose: 50 mg
[2018-04-01] MEDS ORDERED: Iopamidol 370 76% 100 ML VIAL ONE (13:20)
[2018-04-01] MEDS ORDERED: traMADol HCl 50 MG TAB PO PRN (13:26)
[2018-04-01] MEDS ORDERED: Acetaminophen/Codeine 30-300mg Tablet PO PRN ×2 (13:26)
[2018-04-01] MEDS ORDERED: Sodium Chloride 0.9% 200 ML IV PRN (13:30)
--- NOTE | 2018-04-01 15:15 | EKG ---
Test Reason : CHEST TIGHTNESS Blood Pressure : / mmHG Vent. Rate : 078 BPM Atrial Rate : 078 BPM P-R Int : 156 ms QRS Dur : 154 ms QT Int : 428 ms P-R-T Axes : 052 -88 086 degrees QTc Int : 487 ms Normal sinus rhythm Possible Left atrial enlargement Left axis deviation Right bundle branch block Abnormal ECG Confirmed by FRANK ANN DO ([id number]), senior technical editor STIVEN ADAMS ([id number]) on 04/01/2018 3:14:36 PM Referred By: Confirmed By:FRANK ANN DO
[2018-04-01] MEDS ORDERED: Sodium Chloride 0.9% 10 ML ONE (19:54)
[2018-04-01] MEDS: Rosuvastatin 20 MG TAB PO SCH (20:14)
[2018-04-01] MEDS: Famotidine 20 MG TAB PO SCH (20:14)
[2018-04-01] MEDS ORDERED: Metoprolol Tartrate 25 MG TAB PO SCH (21:00)
[2018-04-02 07:02] LABS: Anion Gap 13 mmol/L (10-20); BUN (Urea Nitrogen) 22 mg/dL (8.4-25.7); Calc. Creatinine Clearance 80 mL/min (70-130); Calcium 9.1 mg/dL (7.8-10.44); Carbon Dioxide 22 mmol/L (23-31); Chloride 108 mmol/L (98-107); Estimated GFR-MDRD Greater than 90; Glucose 100 mg/dL (83-110); Potassium 4.3 mmol/L (3.5-5.1); Sodium 139 mmol/L (136-145)
[2018-04-02] MEDS ORDERED: Carvedilol 3.125 MG TAB PO SCH ×2 (08:45→17:00)
[2018-04-02] MEDS ORDERED: Clopidogrel Bisulfate 75 MG TAB PO SCH (09:00)
[2018-04-02] MEDS: Aspirin 81 mg Enteric Coated Tablet PO SCH (09:30)
[2018-04-02] MEDS: Ubidecarenone 50 MG CAP PO SCH (09:31)
[2018-04-02] MEDS: Famotidine 20 MG TAB PO SCH (09:31)
[2018-04-02 11:30] VITALS: TEMP 97.5
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
[2018-04-02 14:09] VITALS: BP 160/95
== END 2018-04-02 14:21 | disposition home or self-care (01) | DRG 282 ==
LOC: ERS 12:02 → 2SW 19:04 → OBSVTOIN 04-01 08:16 → 2NO 04-01 18:04
PROVIDERS: ADMIT Family Medicine; ATTEND Family Medicine
PROC: 4A023N7 Measurement of Cardiac Sampling and Pressure, Left Heart, Percutaneous Approach (ICD-10-PCS; principal; 2018-04-01)
PROC: B2151ZZ Fluoroscopy of Left Heart using Low Osmolar Contrast (ICD-10-PCS; 2018-04-01)
PROC: B3101ZZ Fluoroscopy of Thoracic Aorta using Low Osmolar Contrast (ICD-10-PCS; 2018-04-01)
PROC: B2131ZZ Fluoroscopy of Multiple Coronary Artery Bypass Grafts using Low Osmolar Contrast (ICD-10-PCS; 2018-04-01)
DX: T82.858A Stenosis of other vascular prosthetic devices, implants and grafts, initial encounter (principal); I21.4 Non-ST elevation (NSTEMI) myocardial infarction; I25.10 Atherosclerotic heart disease of native coronary artery without angina pectoris; E78.5 Hyperlipidemia, unspecified; E78.00 Pure hypercholesterolemia, unspecified; Z95.1 Presence of aortocoronary bypass graft; I48.91 Unspecified atrial fibrillation; Z95.0 Presence of cardiac pacemaker; I10 Essential (primary) hypertension; I06.1 Rheumatic aortic insufficiency; F41.9 Anxiety disorder, unspecified; F32.9 Major depressive disorder, single episode, unspecified
CPT/HCPCS: 36415; 71045; 80048; 80053; 80061; 82553; 84484; 85025; 93005; 93459; 93567; 93798; 96372; A4216; C1769; J1644; J1650

== ENCOUNTER 2018-08-14 12:15 | Outpatient (CLI) | payer MEDICARE ==
--- NOTE | 2018-08-14 14:24 | CT ---
CT CHEST WITHOUT CONTRAST: Technique: Multiple contiguous axial images were obtained through the chest without IV enhancement. L ow dose screening protocol was followed. Indications: Lung cancer screening. Long history of smoking. Comparison: Low dose CT chest dated 01-31-17, which is a Lung RADS 1 exam. FINDINGS: The lungs show scattered chronic changes with areas of stranding. There is a new pleural based nodular density seen in the posterior right midlung with contact with th e major fissure and posterior pleural surface. This measures approximately 7 mm on coronal image. A f ocus of pleural based atelectasis is suspected. However, follow up is recommended. Mild stranding of atelectasis in the anterior right mid lung at the cardiophrenic angle is stable. No other evidence of nodule or mass. No effusion. Mediastinum is unremarkable. Upper abdomen unremarkab le. Osseous structures are unremarkable. IMPRESSION: 1. New pleural based nodular density posterior right midlung seen on coronal image 126 and sagittal i mage 78. Focus of rounded pleural based atelectasis is suspected. This would indicate a Lung RADS 3. Recommend follow up low dose noncontrast chest CT in six months to re-evaluate. POS: [facility]
== END 2018-08-14 12:16 | disposition home or self-care (01) ==
LOC: CT 12:15
PROVIDERS: ATTEND Family Medicine
DX: Z12.2 Encounter for screening for malignant neoplasm of respiratory organs (principal); Z00.00 Encounter for general adult medical examination without abnormal findings; F17.210 Nicotine dependence, cigarettes, uncomplicated; J98.4 Other disorders of lung
CPT/HCPCS: G0297

== ENCOUNTER 2019-02-23 08:31 | Outpatient (CLI) | payer MEDICARE ==
--- NOTE | 2019-02-23 09:20 | CT ---
CT pulmonary lung scan without IV contrast INDICATION: Lung cancer screening protocol; 50 yearhistory of smoking 2 cigarettes per day with short ness of breath and COPDnicotine dependence COMPARISON: CT pulmonary lung scan dated August 14, 2018 FINDINGS: LUNGS: Nodules\mass: The pleural-based linear opacity, adjacent to the superior aspect of the right major fi ssure is less prominent than on the prior examination and likely reflected an area of subsegmental volume loss. Emphysema: Stable moderate to severe emphysema Additional findings: Post-CABG changes stable. Mild aneurysmal dilatation of the aorta is stable. Vas cular calcifications are stable. Mediastinum: No lymphadenopathy. Upper abdomen: No abnormality. Osseous structures: No acute abnormality.. There is scattered degenerative and osteoarthritic change present. 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 Stable emphysema. Pleural-based linear opacities seen within the superior aspect of the right lower lobe, adjacent to the right major fissure is likely related to area of subsegmental volume loss. This is le ss prominent than on the comparison examination. Category C: Not applicable.
== END 2019-02-23 08:32 | disposition home or self-care (01) ==
LOC: CT 08:31
PROVIDERS: ATTEND Family Medicine
DX: Z87.891 Personal history of nicotine dependence (principal); R91.1 Solitary pulmonary nodule; I71.2 Thoracic aortic aneurysm, without rupture; J43.9 Emphysema, unspecified; R91.8 Other nonspecific abnormal finding of lung field
CPT/HCPCS: G0297

== ENCOUNTER 2020-04-06 07:26 | Outpatient (CLI) | payer MEDICARE ==
--- NOTE | 2020-04-06 09:40 | CT ---
CT chest noncontrast low-dose screening HISTORY: Tobacco abuse. COMPARISON: 02/23/2019. FINDINGS:0.5 cm nodular density associated with an area of scarring within the medial segment right m iddle lobe is stable. A 0.4 cm pleural-based nodule at the posteromedial aspect of the right lower lobe has developed since the prior exam. Additional tiny, 0.1-0.2 cm subpleural nodules are scattered throughout each lung. Scattered mild emphysematous bullae and peripheral interstitial scarring are again demonstrated. No p leural fluid or lobar consolidation. Calcification within the coronary arteries and other arterial structures. Ectasia of the aortic arch similar in appearance to the prior exam. At the superiormost images, prominent degenerative changes lower cervical spine at the C6-7 level res ults in significant central canal stenosis. Within the partially visualized upper abdomen, hyperdense stones are present within the gallbladder l umen. IMPRESSION : BI-RADS Category 2. Benign findings. Suggest continued routine screening. Atherosclerosis. Prominent degenerative changes lower cervical spine, including significant central canal stenosis at the C6-7 level. Cholelithiasis.
--- NOTE | 2020-04-06 10:06 | CT ---
CT ABDOMEN AND PELVIS WITH AND WITHOUT IV CONTRAST: Date: 04/06/2020 HISTORY: Microscopic hematuria. FINDINGS: The lung bases are clear. There are calcified gallstones. A 1.0 cm cyst is seen in the right lobe of the liver adjacent to the gallbladder. The spleen, pancreas, and adrenal glands are normal. There are a couple of calculi in the right kidney measuring up to 3.0 mm. No calculi are seen in the left kidney, either ureter, or the urinary bladder. No hydroureteronephrosis noted on either side. Th ere is a 3.0 cm right renal cyst. There is normal contrast excretion into the pelvicaliceal systems a nd ureters and urinary bladder. There are masses arising from the posterior wall of the urinary bladd er measuring 2.5 cm on the right and 1.5 cm on the left. No free air, free fluid, or lymphadenopathy seen in the abdomen or pelvis. 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 Multilevel degenerative changes are seen in the sp ine. The small bowel loops are not abnormally dilated. There is colonic diverticulosis. The prostate is enlarged. There is a 2.0 cm low density lesion in the posterior aspect of the prostate gland. A sm all left fat-containing inguinal hernia is present. IMPRESSION: 1. Cholelithiasis. 2. Hepatic cysts. 3. Right renal cyst. 4. Nonobstructing right renal calculi. 5. Findings are suspicious for bladder malignancy. Cystoscopy is recommended. 6. Prostatic enlargement. 2.0 cm low density lesion suspicious for malignancy. 7. 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 8. Colonic diverticulosis. CODE T. POS: OFF
[2020-04-06] MEDS ORDERED: Iopamidol-370 76% 500 ML 1 ML ONE (13:19)
== END 2020-04-06 07:27 | disposition home or self-care (01) ==
LOC: BICCT 07:26
PROVIDERS: ATTEND Family Medicine
DX: R31.29 Other microscopic hematuria (principal); R91.1 Solitary pulmonary nodule; F17.210 Nicotine dependence, cigarettes, uncomplicated; K80.20 Calculus of gallbladder without cholecystitis without obstruction; K76.89 Other specified diseases of liver; N28.1 Cyst of kidney, acquired; N20.0 Calculus of kidney; K57.30 Diverticulosis of large intestine without perforation or abscess without bleeding; I71.4 Abdominal aortic aneurysm, without rupture; I70.0 Atherosclerosis of aorta; M47.812 Spondylosis without myelopathy or radiculopathy, cervical region
CPT/HCPCS: 74178; G0297; Q9967

== ENCOUNTER 2020-05-03 07:34 | Outpatient (CLI) | payer MEDICARE, OTHER ==
[2020-05-03 14:17] LABS: PTT 39.8 sec (22.9-36.1); Prothrombin Time 13.9 sec (12.0-14.7)
[2020-05-03 14:25] LABS: Bacteria/HPF None Seen HPF (None Seen); Bilirubin Negative (Negative); Blood, Urine 3+ (Negative); Clarity Clear (Clear); Glucose, Urine (Dipstick) Normal (Negative); Ketone, Urine Negative (Negative); Leukocyte Negative Leu/uL (Negative); Nitrite Negative (Negative); Protein, Urine (Dipstick) 30 mg/dL (Neg-Trace); RBC/HPF Greater than 50 HPF (0-3); Specific Gravity, Urine 1.016 (1.002-1.036); Squamous Epithelial None Seen HPF (0-3); Transitional Epithelial 0-3 HPF (None Seen); pH, Urine 6.5 (5.0-9.0)
[2020-05-03 14:40] LABS: Anion Gap 15 mmol/L (10-20); BUN (Urea Nitrogen) 13 mg/dL (8.4-25.7); Calc. Creatinine Clearance 0 mL/min (70-130); Calcium 9.1 mg/dL (7.8-10.44); Carbon Dioxide 26 mmol/L (23-31); Chloride 102 mmol/L (98-107); Estimated GFR-MDRD 71; Glucose 118 mg/dL (83-110); Potassium 4.8 mmol/L (3.5-5.1); Sodium 138 mmol/L (136-145)
[2020-05-03 14:43] LABS: Mean Corpuscular HGB CONC 32.9 g/dL (32.0-36.0); Mean Corpuscular Volume 94.3 fL (78.0-98.0); Mean Platelet Volume 6.9 fL (7.4-10.4); Platelet Count 172 thou/uL (130-400); RBC Distribution Width 13.9 % (11.5-14.5); Red Blood Cell (RBC) Count 6.45 mill/uL (4.70-6.10); White Blood Cell (WBC) Count 8.4 thou/uL (4.8-10.8)
--- NOTE | 2020-05-03 15:13 | EKG ---
Test Reason : Blood Pressure : / mmHG Vent. Rate : 073 BPM Atrial Rate : 073 BPM P-R Int : 242 ms QRS Dur : 156 ms QT Int : 432 ms P-R-T Axes : 028 -89 057 degrees QTc Int : 475 ms Atrial-paced rhythm with prolonged AV conduction Left axis deviation Right bundle branch block Anterior infarct , age undetermined cannot be excluded Abnormal ECG No previous ECGs available Confirmed by CEFERINO PERDOMO ([id number]) on 05/03/2020 3:13:02 PM Referred By: BETH Confirmed By:CEFERINO PERDOMO
[2020-05-04 11:52] LABS: SARS-CoV-2 MS2 Positive; SARS-CoV-2 N Gene Negative; SARS-CoV-2 S Gene Negative; SARS-CoV-2 by NAA Not Detected (NotDetected); SARS-CoV-2 orf1ab Negative
== END 2020-05-03 07:35 | disposition home or self-care (01) ==
LOC: LABBT 07:34
PROVIDERS: ATTEND Urology
DX: Z01.818 Encounter for other preprocedural examination (principal); Z20.828 Contact with and (suspected) exposure to other viral communicable diseases; N32.89 Other specified disorders of bladder; E11.9 Type 2 diabetes mellitus without complications; I25.10 Atherosclerotic heart disease of native coronary artery without angina pectoris; I10 Essential (primary) hypertension; J44.9 Chronic obstructive pulmonary disease, unspecified; F17.200 Nicotine dependence, unspecified, uncomplicated; I45.9 Conduction disorder, unspecified; Z12.5 Encounter for screening for malignant neoplasm of prostate; R31.29 Other microscopic hematuria; R80.9 Proteinuria, unspecified; N20.0 Calculus of kidney; R39.89 Other symptoms and signs involving the genitourinary system; N28.1 Cyst of kidney, acquired; I72.3 Aneurysm of iliac artery
CPT/HCPCS: 80048; 81001; 85027; 85610; 85730; 86850; 86900; 86901; 87086; 93005; U0003; 87635; 93010

== ENCOUNTER 2020-05-08 05:59 | Day surgery (SDC) | payer MEDICARE ==
[2020-05-08] MEDS ORDERED: Levofloxacin 500 mg/D5W 100 ml Premix Bag ONE (06:43)
[2020-05-08 06:56] LABS: #Basophils 0.1 thou/uL (0.0-0.2); #Eosinphils 0.3 thou/uL (0.0-0.7); #Lymphocytes 1.8 thou/uL (1.20-3.40); #Monocytes 0.7 thou/uL (0.11-0.59); #Neutrophils 5.6 thou/uL (1.40-6.50); %Basophils 0.8 % (0.0-1.0); %Eosinophils 3.4 % (0.0-10.0); %Lymphocytes 21.2 % (21.0-51.0); %Monocytes 8.6 % (0.0-10.0); %Neutrophils 65.9 % (42.0-75.0); Hemoglobin 15.7 g/dL (14.0-18.0); Mean Corpuscular Hemoglobin 31.3 pg (27.0-31.0); Mean Corpuscular Volume 92.2 fL (78.0-98.0); Mean Platelet Volume 6.4 fL (7.4-10.4); Platelet Count 190 thou/uL (130-400); RBC Distribution Width 13.7 % (11.5-14.5); Red Blood Cell (RBC) Count 5.03 mill/uL (4.70-6.10); White Blood Cell (WBC) Count 8.5 thou/uL (4.8-10.8)
[2020-05-08] MEDS ORDERED: Iothalamate Meglumine 60% 50 ML VIAL FS ONE (07:09)
[2020-05-08 07:28] LABS: PTT 37.5 sec (22.9-36.1)
[2020-05-08] MEDS ORDERED: Phenazopyridine HCl 100 MG TAB ONE (09:36)
[2020-05-08] MEDS ORDERED: Oxybutynin 5 MG TAB ONE (09:36)
--- NOTE | 2020-05-08 09:49 | RAD ---
Exam: Retrograde pyelogram: HISTORY: Renal calculi, stent Initial injection of the left ureter appears unremarkable. Placement of a left ureteral stent. This i s followed by injection of the right upper collecting system and ureter with what probably a tiny renal calculus. Evidence of multiple gallstones. Placement of a right ureteral stent. IMPRESSION: Evidence for small right renal calculus. Placement of bilateral ureteral stents. Evidence for multiple gallstones.
[2020-05-08] MEDS ORDERED: Lidocaine 1% PF 5 ML VIAL ONE (10:34)
[2020-05-08] MEDS ORDERED: Dexamethasone 20 MG/5 ML VIAL ONE (10:34)
[2020-05-08] MEDS ORDERED: Glycopyrrolate 0.2 MG/ML 5 ML SYRINGE ONE (10:34)
[2020-05-08] MEDS ORDERED: PROPOFOL 200 MG/20 ML VIAL ONE (10:34)
[2020-05-08] MEDS ORDERED: Ondansetron PF 4 MG/2 ML Vial ONE (10:34)
[2020-05-08] MEDS ORDERED: Rocuronium Bromide 10 MG/ML (10ML VIAL) ONE (10:34)
[2020-05-08] MEDS ORDERED: PHENYLEPHRINE-NS 100 MCG/ML 10 ML SYRINGE ONE (10:34)
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
== END 2020-05-08 11:15 | disposition home or self-care (01) ==
LOC: SDC 05:59
PROVIDERS: ATTEND Urology
PROC: 0TBB8ZX Excision of Bladder, Via Natural or Artificial Opening Endoscopic, Diagnostic (ICD-10-PCS; principal; 2020-05-08)
DX: D49.4 Neoplasm of unspecified behavior of bladder (principal); N20.0 Calculus of kidney; R31.29 Other microscopic hematuria; R80.9 Proteinuria, unspecified; I10 Essential (primary) hypertension; E11.9 Type 2 diabetes mellitus without complications; E78.5 Hyperlipidemia, unspecified; J44.9 Chronic obstructive pulmonary disease, unspecified; F32.9 Major depressive disorder, single episode, unspecified; I25.10 Atherosclerotic heart disease of native coronary artery without angina pectoris; I72.3 Aneurysm of iliac artery; Z79.82 Long term (current) use of aspirin; Z79.899 Other long term (current) drug therapy; Z87.891 Personal history of nicotine dependence
CPT/HCPCS: 36415; 74420; 85025; 85610; 85730; 88305; 88307; J1100; J1956; J2405; J2704

== ENCOUNTER 2020-05-26 06:36 | Outpatient (CLI) | payer MEDICARE, OTHER ==
[2020-05-26 14:02] LABS: PTT 37.9 sec (22.9-36.1); Prothrombin Time 13.3 sec (12.0-14.7)
[2020-05-26 14:03] LABS: Hemoglobin 16.3 g/dL (14.0-18.0); Mean Corpuscular HGB CONC 33.7 g/dL (32.0-36.0); Mean Corpuscular Hemoglobin 30.9 pg (27.0-31.0); Mean Corpuscular Volume 91.9 fL (78.0-98.0); Mean Platelet Volume 6.6 fL (7.4-10.4); Platelet Count 236 thou/uL (130-400); RBC Distribution Width 13.4 % (11.5-14.5); Red Blood Cell (RBC) Count 5.27 mill/uL (4.70-6.10); White Blood Cell (WBC) Count 8.4 thou/uL (4.8-10.8)
[2020-05-26 14:21] LABS: Bacteria/HPF 3+ HPF (None Seen); Bilirubin Negative (Negative); Blood, Urine 3+ (Negative); Clarity Turbid (Clear); Glucose, Urine (Dipstick) Normal (Negative); Ketone, Urine Negative (Negative); Leukocyte 500 Leu/uL (Negative); Nitrite Negative (Negative); Protein, Urine (Dipstick) 100 mg/dL (Neg-Trace); RBC/HPF Greater than 50 HPF (0-3); Specific Gravity, Urine 1.012 (1.002-1.036); Squamous Epithelial 0-3 HPF (0-3); Urobilinogen Normal mg/dL (Less than 2); WBC/HPF Greater than 50 HPF (0-3)
[2020-05-26 15:00] LABS: Anion Gap 15 mmol/L (10-20); BUN (Urea Nitrogen) 18 mg/dL (8.4-25.7); Calc. Creatinine Clearance 0 mL/min (70-130); Calcium 9.3 mg/dL (7.8-10.44); Carbon Dioxide 24 mmol/L (23-31); Chloride 106 mmol/L (98-107); Estimated GFR-MDRD 65; Glucose 131 mg/dL (83-110); Potassium 5.1 mmol/L (3.5-5.1); Sodium 140 mmol/L (136-145)
[2020-05-27 11:59] LABS: SARS-CoV-2 MS2 Positive; SARS-CoV-2 N Gene Negative; SARS-CoV-2 S Gene Negative; SARS-CoV-2 by NAA Not Detected (NotDetected); SARS-CoV-2 orf1ab Negative
--- NOTE | 2020-05-28 12:11 | EKG ---
Test Reason : Blood Pressure : / mmHG Vent. Rate : 087 BPM Atrial Rate : 088 BPM P-R Int : 236 ms QRS Dur : 154 ms QT Int : 408 ms P-R-T Axes : 000 -87 078 degrees QTc Int : 490 ms Atrial-paced rhythm with prolonged AV conduction Left axis deviation Right bundle branch block Abnormal ECG When compared with ECG of 03-MAY-2020 10:45, Criteria for Anterior infarct are no longer Present Confirmed by GURVINDER MCFARLAND ([id number]) on 05/28/2020 12:11:24 PM Referred By: ROSHNI Confirmed By:GURVINDER MCFARLAND
== END 2020-05-26 06:37 | disposition home or self-care (01) ==
LOC: LABBT 06:36
PROVIDERS: ATTEND Urology
DX: Z01.818 Encounter for other preprocedural examination (principal); Z12.5 Encounter for screening for malignant neoplasm of prostate; Z20.828 Contact with and (suspected) exposure to other viral communicable diseases; C67.9 Malignant neoplasm of bladder, unspecified; E11.9 Type 2 diabetes mellitus without complications; I25.10 Atherosclerotic heart disease of native coronary artery without angina pectoris; I10 Essential (primary) hypertension; J44.9 Chronic obstructive pulmonary disease, unspecified; F17.200 Nicotine dependence, unspecified, uncomplicated; I45.9 Conduction disorder, unspecified; R31.29 Other microscopic hematuria; R80.9 Proteinuria, unspecified; N20.0 Calculus of kidney; R93.89 Abnormal findings on diagnostic imaging of other specified body structures; N28.1 Cyst of kidney, acquired; I72.3 Aneurysm of iliac artery; D75.1 Secondary polycythemia; Z93.0 Tracheostomy status
CPT/HCPCS: 80048; 81001; 85027; 85610; 85730; 86850; 86900; 86901; 87086; 93005; U0003; 87635; 93010

== ENCOUNTER 2020-05-31 06:35 | Day surgery (SDC) | payer MEDICARE ==
[2020-05-30 10:10] VITALS: BMI 23.6
[2020-05-31] MEDS ORDERED: Levofloxacin 500 mg/D5W 100 ml Premix Bag ONE (07:00)
[2020-05-31] MEDS ORDERED: Iothalamate Meglumine 60% 50 ML VIAL FS ONE (07:14)
[2020-05-31 07:45] LABS: Hemoglobin 16.5 g/dL (14.0-18.0); Mean Corpuscular HGB CONC 33.3 g/dL (32.0-36.0); Mean Corpuscular Hemoglobin 29.9 pg (27.0-31.0); Mean Corpuscular Volume 89.8 fL (78.0-98.0); Mean Platelet Volume 6.3 fL (7.4-10.4); Platelet Count 235 thou/uL (130-400); RBC Distribution Width 13.6 % (11.5-14.5); Red Blood Cell (RBC) Count 5.52 mill/uL (4.70-6.10); White Blood Cell (WBC) Count 11.9 thou/uL (4.8-10.8)
--- NOTE | 2020-05-31 07:52 | RAD ---
EXAM: Single view of the abdomen HISTORY: Kidney stones COMPARISON: 05/08/2020 FINDINGS: Single view of the abdomen shows a nonspecific, nonobstructive bowel gas pattern. Calcifica tions project over the right renal shadow measuring up to 2.8 cm in size. This large calcification was not definitely seen on the prior retrograde IVP and alternatively, this could represent a collect ion of contrast. There are bilateral double-J ureteral stents. The right ureteral stent is slightly low-lying but its proximal pigtail portion may likely still be within the renal pelvis. The bones ar e unremarkable. IMPRESSION: Right nephrolithiasis
[2020-05-31] MEDS ORDERED: Fentanyl 100 MCG/2 ML VIAL ONE (08:15)
--- NOTE | 2020-05-31 09:26 | RAD ---
Exam: Intraoperative fluoroscopy for retrograde IVP COMPARISON: 05/08/2020 FINDINGS: 18 intraoperative fluoroscopic images demonstrate replacement of a left and right-sided norma ble-J ureteral stent. Stent position appears be appropriate. Multiple hyperdensities project in the right upper quadrant, compatible with gallstones demonstrated on CT 04/06/2020 IMPRESSION: Interval replacement of the left and right double-J ureteral stents.
[2020-05-31] MEDS ORDERED: Oxybutynin 5 MG TAB ONE (09:32)
[2020-05-31] MEDS ORDERED: Phenazopyridine HCl 100 MG TAB ONE (09:32)
[2020-05-31] MEDS ORDERED: PROPOFOL 200 MG/20 ML VIAL ONE (11:06)
[2020-05-31] MEDS ORDERED: Rocuronium Bromide 10 MG/ML (10ML VIAL) ONE (11:06)
[2020-05-31] MEDS ORDERED: Glycopyrrolate 0.2 MG/ML 5 ML SYRINGE ONE (11:06)
[2020-05-31] MEDS ORDERED: PHENYLEPHRINE-NS 100 MCG/ML 10 ML SYRINGE ONE (11:06)
[2020-05-31] MEDS ORDERED: Ondansetron PF 4 MG/2 ML Vial ONE (11:06)
[2020-05-31] MEDS ORDERED: Dexamethasone 20 MG/5 ML VIAL ONE (11:06)
[2020-05-31] MEDS ORDERED: Lidocaine 1% PF 5 ML VIAL ONE (11:06)
--- NOTE | 2020-05-31 13:06 | OP ---
DATE OF PROCEDURE: 05/31/2020 PREOPERATIVE DIAGNOSES: 1. A 75-year-old male with recent transurethral resection of bladder tumor presenting tumor size surface area, combination more than 5 cm, demonstrating low-grade noninvasive bladder cancer, however, bulky in size, encroaching bilateral ureteral orifices, a 3rd satellite lesion in the posterior wall. 2. Normal PSA with CT demonstrating low-density lesion in the posterior prostate, nonspecific, unremarkable digital rectal exam. POSTOPERATIVE DIAGNOSES: 1. A 75-year-old male with recent transurethral resection of bladder tumor, demonstrating low-grade noninvasive bladder cancer, however, bulky in size, encroaching bilateral ureteral orifices, a 3rd satellite lesion in the posterior wall. 2. Normal PSA with CT demonstrating low-density lesion in the posterior prostate, nonspecific, unremarkable digital rectal exam. PROCEDURES PERFORMED: 1. Transurethral resection of bladder tumor bed. 2. Bilateral 6 x 28 double-J ureteral stent placement. 3. 20-[place]ian 30 mL Sullivan catheter placement to gravity leg bag. ANESTHESIA: General. COMPLICATIONS: None apparent. SPECIMENS: TUR of tumor bed. INTRAOPERATIVE FINDINGS: 1. Previous resection site involving the right trigone involving the region of right ureteral orifice, left trigonal tumor involving the region of right UO as well, a 3rd lesion at the posterior wall, previously resected. 2. Papillary edema of the trigone bilaterally, questionable residual tumor in the left tumor medial to the left UO, nonspecific. ESTIMATED BLOOD LOSS: Minimal. IV FLUIDS: 150 mL. INDICATIONS FOR PROCEDURE AND HISTORY: Mr. Alfaro is a pleasant 75-year-old male, referred to me for history of microscopic hematuria. Workup demonstrated a bulky tumor located in the trigone. Both of the tumors involving the vicinity of the right UO insertion; however, with no evidence of hydronephrosis. Tumor on CT demonstrated on the right side measuring about 3 cm. The surface area of both tumors were quite bulky in size> 5cm in total. He underwent successful resection and the specimen is low-grade noninvasive. We planned on proceeding with BCG; however, he presents today for restaging TUR, to ensure a complete resection of residual tumor as there was some inflammatory component, nonspecific. Risks and complications of the procedure were reviewed with him in detail including, but not limited to, bleeding; pain; infection; injury to adjacent organs; urosepsis; ureteral, renal, and bladder injury; and clot retention. All questions were answered to his satisfaction and desired to proceed. DESCRIPTION OF PROCEDURE: After an informed consent was signed, the patient was taken to the operating room and placed in a dorsal lithotomy position with the genital area prepped and draped in the usual surgical sterile fashion. A 21- [place] cystoscope was utilized for cystoscopy, which again demonstrated no evidence of urethral pathology. Bilobar mild hyperplasia of the prostate lobe was noted. No median lobe. Upon entering the bladder, we visualized the ureteral stents in good position. There were changes consistent with previous resection of the tumor on both sides involving the region of the right and left ureteral orifices and the 3rd lesion at the posterior wall. Most of the reactive changes appeared to be consistent with a recent TUR with some bullous edema, consistent with chronic stent. However, at the left tumor, medial to the left UO, may be a residual tumor. We resected this with a resectoscope, in which a 26-[place] resectoscope was passed with a visual obturator. I also then resected couple of areas of the tumor bed for further pathology for tissue diagnosis. No suspicious lesions beside the left tumor region medial to the left UO was appreciated and this region was also nonspecific. However, I did resect the area and sent for pathology. Excellent hemostasis was obtained. Visualization of the ureteral orifices with the stent in situ demonstrated that no extruding tumor seen involving the right ureteral orifice. Previous right lateral tumor presented, in which we were unable to visualize the right UO. The tumor had to be resected to the level of the UO to be visualized. At this time, bilateral stents were removed, when a 0.035 Sensor wire was placed through the stent and 6 x 28 double-J ureteral stents were exchanged bilaterally uneventfully. A 20-[place] 3-way Sullivan catheter was inserted, with CBI port plugged. I will monitor for degree of hematuria. Anticipate he will be discharged home with indwelling Sullivan catheter. He will follow up with me next week, 06/08, for cystoscopy and bilateral stent pull. After convalescence, we plan to proceed with induction BCG. I will allow minimum 2 to 4 weeks until heals from the recent surgical intervention and removal of stent to proceed with BCG. Job ID: [id number] [facility]
== END 2020-05-31 12:45 | disposition home or self-care (01) ==
LOC: SDC 06:35
PROVIDERS: ATTEND Urology
PROC: 0T5B8ZZ Destruction of Bladder, Via Natural or Artificial Opening Endoscopic (ICD-10-PCS; principal; 2020-05-31)
PROC: 0T788DZ Dilation of Bilateral Ureters with Intraluminal Device, Via Natural or Artificial Opening Endoscopic (ICD-10-PCS; 2020-05-31)
PROC: 0TP98DZ Removal of Intraluminal Device from Ureter, Via Natural or Artificial Opening Endoscopic (ICD-10-PCS; 2020-05-31)
DX: C67.8 Malignant neoplasm of overlapping sites of bladder (principal); C67.4 Malignant neoplasm of posterior wall of bladder; N40.0 Benign prostatic hyperplasia without lower urinary tract symptoms; F17.290 Nicotine dependence, other tobacco product, uncomplicated; I49.5 Sick sinus syndrome; E11.9 Type 2 diabetes mellitus without complications; E78.5 Hyperlipidemia, unspecified; I10 Essential (primary) hypertension; J44.9 Chronic obstructive pulmonary disease, unspecified; F32.9 Major depressive disorder, single episode, unspecified; I25.10 Atherosclerotic heart disease of native coronary artery without angina pectoris; I45.9 Conduction disorder, unspecified; N28.1 Cyst of kidney, acquired; K80.20 Calculus of gallbladder without cholecystitis without obstruction; N20.0 Calculus of kidney; Z79.899 Other long term (current) drug therapy; Z88.2 Allergy status to sulfonamides; Z95.0 Presence of cardiac pacemaker; Z95.1 Presence of aortocoronary bypass graft
CPT/HCPCS: 74018; 74420; 85027; 88307; J1100; J1956; J2405; J2704; J3010

== ENCOUNTER 2020-10-06 11:22 | Outpatient (CLI) | payer MEDICARE ==
[2020-10-06 14:24] LABS: Bilirubin Neg (Negative); Blood, Urine 50 (Negative); Clarity Clear (Clear); Glucose, Urine (Dipstick) 50 mg/dL (Negative); Ketone, Urine Negative (Negative); Leukocyte Negative (Negative); Nitrite Negative (Negative); Protein, Urine (Dipstick) Negative (Neg-Trace); Urobilinogen Normal mg/dL (Less than 2); pH, Urine 6.5 (5.0-9.0)
[2020-10-06 14:33] LABS: Hemoglobin 15.2 g/dL (13.5-17.5); Mean Corpuscular HGB CONC 30.9 g/dL (32.0-36.0); Mean Corpuscular Hemoglobin 25.5 pg (27.0-33.0); Mean Corpuscular Volume 82.4 fl (81.2-95.1); Mean Platelet Volume 8.7 fl (7.4-10.4); Platelet Count 168 10x3/uL (150-450); RBC Distribution Width 18.2 % (11.5-14.5); Red Blood Cell (RBC) Count 5.97 10x6/uL (4.32-5.72); White Blood Cell (WBC) Count 6.1 10x3/uL (3.5-10.5)
[2020-10-06 14:44] LABS: INR-International Normal Ratio 1.1; PTT 32.6 sec (22.0-33.0); Prothrombin Time 11.1 sec (9.5-12.1)
[2020-10-06 14:54] LABS: Bacteria/HPF None Seen HPF (None Seen); Squamous Epithelial 0-3 HPF (0-3); WBC/HPF 0-3 HPF (0-3)
[2020-10-06 15:29] LABS: Anion Gap 12 mmol/L (10-20); BUN (Urea Nitrogen) 22 mg/dL (8.4-25.7); Calc. Creatinine Clearance 0 mL/min (70-130); Calcium 9.2 mg/dL (7.8-10.44); Carbon Dioxide 28 mmol/L (23-31); Chloride 101 mmol/L (98-107); Glucose 86 mg/dL (83-110); Potassium 5.1 mmol/L (3.5-5.1); Sodium 136 mmol/L (136-145)
[2020-10-07 02:22] LABS: SARS-CoV-2 PCR by NAA Not Detected (NotDetected)
== END 2020-10-06 11:23 | disposition home or self-care (01) ==
LOC: LABBT 11:22
PROVIDERS: ATTEND Urology
DX: Z01.818 Encounter for other preprocedural examination (principal); Z01.812 Encounter for preprocedural laboratory examination; Z20.822 Contact with and (suspected) exposure to COVID-19; C67.9 Malignant neoplasm of bladder, unspecified; F17.200 Nicotine dependence, unspecified, uncomplicated; I25.10 Atherosclerotic heart disease of native coronary artery without angina pectoris; Z12.5 Encounter for screening for malignant neoplasm of prostate; R39.89 Other symptoms and signs involving the genitourinary system; I72.3 Aneurysm of iliac artery
CPT/HCPCS: 80048; 81001; 85027; 85610; 85730; 86850; 86900; 86901; 87086; 93005; U0003; U0005; 87635; 93010

== ENCOUNTER 2020-10-11 07:08 | Day surgery (SDC) | payer MEDICARE ==
[2020-10-10 10:47] VITALS: BMI 24.1
[2020-10-11] MEDS ORDERED: Levofloxacin 500 mg/D5W 100 ml Premix Bag ONE (08:34)
[2020-10-11] MEDS ORDERED: Iothalamate Meglumine 60% 50 ML VIAL FS ONE (09:21)
[2020-10-11] MEDS ORDERED: PHENYLEPHRINE-NS 100 MCG/ML 10 ML SYRINGE ONE (09:23)
[2020-10-11] MEDS ORDERED: PROPOFOL 200 MG/20 ML VIAL ONE (09:23)
[2020-10-11] MEDS ORDERED: Ondansetron PF 4 MG/2 ML Vial ONE (09:23)
[2020-10-11] MEDS ORDERED: Rocuronium Bromide 10 MG/ML (10ML VIAL) ONE (09:23)
[2020-10-11] MEDS ORDERED: Lidocaine 1% PF 5 ML VIAL ONE (09:23)
[2020-10-11] MEDS ORDERED: SUGAMMADEX SODIUM 200 MG/2 ML VIAL ONE (09:30)
[2020-10-11] MEDS ORDERED: Phenazopyridine HCl 100 MG TAB ONE (10:56)
[2020-10-11] MEDS ORDERED: Oxybutynin 5 MG TAB ONE (10:56)
== END 2020-10-11 13:21 | disposition home or self-care (01) ==
LOC: SDC 07:08
PROVIDERS: ATTEND Urology
PROC: 0T5B8ZZ Destruction of Bladder, Via Natural or Artificial Opening Endoscopic (ICD-10-PCS; principal; 2020-10-11)
DX: C67.4 Malignant neoplasm of posterior wall of bladder (principal); E11.9 Type 2 diabetes mellitus without complications; F17.290 Nicotine dependence, other tobacco product, uncomplicated; I25.10 Atherosclerotic heart disease of native coronary artery without angina pectoris; I49.5 Sick sinus syndrome; E78.5 Hyperlipidemia, unspecified; I10 Essential (primary) hypertension; J44.9 Chronic obstructive pulmonary disease, unspecified; I72.3 Aneurysm of iliac artery; D75.1 Secondary polycythemia; Z79.82 Long term (current) use of aspirin; Z79.899 Other long term (current) drug therapy; Z88.2 Allergy status to sulfonamides; Z95.0 Presence of cardiac pacemaker; Z95.1 Presence of aortocoronary bypass graft
CPT/HCPCS: 52235; 76000; J9280; 88305; J1956; J2405; J2704

== ENCOUNTER 2021-05-18 09:53 | Outpatient (CLI) | payer MEDICARE | END 2021-05-18 09:54 | disposition home or self-care (01) | LOC: BICCT 09:53 | PROVIDERS: ATTEND Family Medicine | DX: Z12.2 Encounter for screening for malignant neoplasm of respiratory organs (principal); Z87.891 Personal history of nicotine dependence | CPT/HCPCS: 71271 ==

== ENCOUNTER 2022-02-25 09:32 | Outpatient (CLI) | payer MEDICARE | END 2022-02-25 09:33 | disposition home or self-care (01) | LOC: BICRAD 09:32 | PROVIDERS: ATTEND Nurse Practitioner Family | DX: M25.512 Pain in left shoulder (principal) ==

== ENCOUNTER 2022-08-21 11:03 | Outpatient (CLI) | payer MEDICARE | END 2022-08-21 11:04 | disposition home or self-care (01) | LOC: BICCT 11:03 | PROVIDERS: ATTEND Thoracic Surgery (Cardiothoracic Vascular Surgery) | DX: I35.9 Nonrheumatic aortic valve disorder, unspecified (principal); I25.10 Atherosclerotic heart disease of native coronary artery without angina pectoris; K80.70 Calculus of gallbladder and bile duct without cholecystitis without obstruction; I70.0 Atherosclerosis of aorta; N28.1 Cyst of kidney, acquired; I72.3 Aneurysm of iliac artery; K57.90 Diverticulosis of intestine, part unspecified, without perforation or abscess without bleeding | CPT/HCPCS: 74176 ==

== ENCOUNTER 2022-09-06 07:35 | Outpatient (CLI) | payer MEDICARE ==
[2022-09-06] MEDS ORDERED: Iopamidol-370 76% 500 ML 1 ML ONE (10:21)
== END 2022-09-06 07:36 | disposition home or self-care (01) ==
LOC: BICCT 07:35
PROVIDERS: ATTEND Urology
DX: C67.9 Malignant neoplasm of bladder, unspecified (principal); N20.0 Calculus of kidney; N28.1 Cyst of kidney, acquired; K57.30 Diverticulosis of large intestine without perforation or abscess without bleeding; N40.0 Benign prostatic hyperplasia without lower urinary tract symptoms; I72.3 Aneurysm of iliac artery; R31.29 Other microscopic hematuria
CPT/HCPCS: 74178; 81001; 82565; 87086; Q9967

== ENCOUNTER 2025-05-26 09:30 | Inpatient (IN) | payer MEDICARE ==
[2025-05-26 09:43] VITALS: BMI 23.1
[2025-05-26 10:35] LABS: #Basophils 0.05 10x3/uL (0.0-0.2); #Eosinophils 0.16 10x3/uL (0.0-0.7); #Monocytes 0.59 10x3/uL (0.11-0.59); #Neutrophils 5.03 10x3/uL (1.40-6.50); %Basophils 0.7 % (0.0-1.0); %Eosinophils 2.3 % (0.0-10.0); %Lymphocytes 17.0 % (21.0-51.0); %Monocytes 8.4 % (0.0-10.0); %Neutrophils 71.2 % (42.0-75.0); Hematocrit 49.0 % (42.0-52.0); Hemoglobin 16.0 g/dL (14.0-18.0); Mean Corpuscular Hemoglobin 29.6 pg (27.0-31.0); Mean Corpuscular Volume 90.6 fL (78.0-98.0); Platelet Count 143 10x3/uL (130-400); Red Blood Cell (RBC) Count 5.41 mill/uL (4.70-6.10); White Blood Cell (WBC) Count 7.06 10x3/uL (4.8-10.8)
[2025-05-26 10:58] LABS: Anion Gap 12 mmol/L (10-20); BUN (Urea Nitrogen) 24 mg/dL (8.4-25.7); Calc. Creatinine Clearance 0 mL/min (70-130); Calcium 9.3 mg/dL (7.8-10.44); Carbon Dioxide 24 mmol/L (23-31); Chloride 104 mmol/L (98-107); Glucose 121 mg/dL (83-110); Potassium 4.2 mmol/L (3.5-5.1); Sodium 136 mmol/L (136-145)
[2025-05-30] MEDS ORDERED: PROPOFOL 20 ML ONE (06:24)
[2025-05-30] MEDS ORDERED: fentaNYL PF 100 MCG/2 ML SYRINGE ONE (06:24)
[2025-05-30] MEDS ORDERED: Heparin 10,000 UNITS/ 10 ML VIAL ONE ×2 (06:34→08:17)
[2025-05-30] MEDS ORDERED: PHENYLEPHRINE-NS 100 MCG/ML 10 ML SYRINGE ONE ×2 (07:22→09:24)
[2025-05-30] MEDS ORDERED: SUCCINYLCHOLINE/SOD CL,ISO/PF 200 MG/10 ML SYRINGE FS ONE (07:35)
[2025-05-30] MEDS ORDERED: Ondansetron PF 4 MG/2 ML Vial ONE (08:17)
[2025-05-30] MEDS ORDERED: CEFAZOLIN 1 GM VIAL ONE (08:17)
[2025-05-30] MEDS ORDERED: SUGAMMADEX SODIUM 200 MG/2 ML VIAL ONE (09:41)
[2025-05-30] MEDS ORDERED: Phenylephrine 40 MG/NS 250 ML 250 ML IVPB PRN (10:10)
[2025-05-30] MEDS ORDERED: Non-Formulary Item 1 EACH (Acetaminophen [Tylenol] 325 MG Capsule) PO PRN (10:10)
[2025-05-30] MEDS ORDERED: Acetaminophen 325 MG TAB PO PRN ×2 (10:10→11:06)
[2025-05-30] MEDS ORDERED: Nitroglycerin 50 MG/250 ML BOT 250 ML IVPB PRN (10:10)
[2025-05-30] MEDS ORDERED: Ondansetron PF 4 MG/2 ML Vial IVP PRN (10:10)
[2025-05-30] MEDS ORDERED: GABAPENTIN 300 MG PO SCH (15:00)
[2025-05-30] MEDS: Gabapentin 300 MG CAP PO SCH (20:43)
[2025-05-30] MEDS: Rosuvastatin 20 MG TAB PO SCH (20:44)
[2025-05-30] MEDS: hydrALAZINE 20 MG/ML VIAL SLOW IVP PRN (21:25)
[2025-05-30 21:27] VITALS: BP 153/72
[2025-05-31 05:10] VITALS: TEMP 97.9
[2025-05-31 06:20] LABS: Anion Gap 13 mmol/L (10-20); BUN (Urea Nitrogen) 21 mg/dL (8.4-25.7); Calc. Creatinine Clearance 56 mL/min (70-130); Calcium 8.7 mg/dL (7.8-10.44); Carbon Dioxide 26 mmol/L (23-31); Chloride 104 mmol/L (98-107); Glucose 111 mg/dL (83-110); Potassium 4.0 mmol/L (3.5-5.1); Sodium 139 mmol/L (136-145)
[2025-05-31 06:38] LABS: #Basophils 0.04 10x3/uL (0.0-0.2); #Eosinophils 0.12 10x3/uL (0.0-0.7); #Monocytes 0.59 10x3/uL (0.11-0.59); #Neutrophils 7.74 10x3/uL (1.40-6.50); %Basophils 0.4 % (0.0-1.0); %Eosinophils 1.3 % (0.0-10.0); %Lymphocytes 10.8 % (21.0-51.0); %Monocytes 6.2 % (0.0-10.0); %Neutrophils 81.1 % (42.0-75.0); Hematocrit 45.6 % (42.0-52.0); Hemoglobin 14.5 g/dL (14.0-18.0); Mean Corpuscular Hemoglobin 29.1 pg (27.0-31.0); Mean Corpuscular Volume 91.4 fL (78.0-98.0); Platelet Count 133 10x3/uL (130-400); Red Blood Cell (RBC) Count 4.99 mill/uL (4.70-6.10); White Blood Cell (WBC) Count 9.54 10x3/uL (4.8-10.8)
[2025-05-31] MEDS: Silodosin 4 MG CAP PO SCH (07:48)
[2025-05-31] MEDS: CO Q-10 CAPSULE 100 MG PO SCH (07:48)
[2025-05-31] MEDS: Cholecalciferol 1,000 UNITS (25 MCG) TAB PO SCH (07:48)
[2025-05-31] MEDS: Sertraline 25 MG TAB PO SCH (07:48)
[2025-05-31] MEDS: Aspirin Chewable 81 MG TAB PO SCH (07:49)
[2025-05-31] MEDS ORDERED: Non-Formulary Item 1 EACH (Zinc [Zinc] 50 MG Tablet) PO SCH (09:00)
[2025-05-31] MEDS ORDERED: Non-Formulary Item 1 EACH (Sertraline Hcl [Zoloft] 50 MG Tab) PO SCH (09:00)
[2025-05-31] MEDS ORDERED: Non-Formulary Item 1 EACH (Garlic [Garlic] 1,000 MG Capsule) PO SCH (09:00)
[2025-05-31] MEDS ORDERED: PHYTONADIONE PO SCH (09:00)
[2025-05-31] MEDS ORDERED: [UNRECOGNIZED DRUG - OTHER] PO SCH (09:00)
[2025-05-31] MEDS ORDERED: CHOLECALCIFEROL PO SCH (09:00)
[2025-05-31] MEDS ORDERED: Silodosin 4 MG CAP PO SCH (09:00)
== END 2025-05-31 09:48 | disposition home or self-care (01) | DRG 272 ==
LOC: SURG A 05-30 06:02 → CCU 05-30 11:27
PROVIDERS: ADMIT Thoracic Surgery (Cardiothoracic Vascular Surgery); ATTEND Thoracic Surgery (Cardiothoracic Vascular Surgery)
PROC: 04VE3DZ Restriction of Right Internal Iliac Artery with Intraluminal Device, Percutaneous Approach (ICD-10-PCS; principal; 2025-05-30)
PROC: 04VC3EZ Restriction of Right Common Iliac Artery with Branched or Fenestrated Intraluminal Device, One or Two Arteries, Percutaneous Approach (ICD-10-PCS; 2025-05-30)
DX: I72.4 Aneurysm of artery of lower extremity (principal); I71.40 Abdominal aortic aneurysm, without rupture, unspecified; I72.3 Aneurysm of iliac artery
CPT/HCPCS: 36415; 80048; 85025; 86850; 86900; 86901; C1760; C1769; C1887; C1889; C1894; J0169; J0360; J0665; J0690; J1642; J1644; J2250; J2405; J2704; J2720; J3010

== ENCOUNTER 2025-05-26 09:30 | Outpatient (CLI) | payer MEDICARE, OTHER | END 2025-05-26 09:31 | disposition home or self-care (01) | LOC: LABBT 09:30 | PROVIDERS: ATTEND Thoracic Surgery (Cardiothoracic Vascular Surgery) | DX: Z01.810 Encounter for preprocedural cardiovascular examination (principal); I72.3 Aneurysm of iliac artery | CPT/HCPCS: 93005; 93010 ==